=== PATIENT | male | born 1990 | race Two or more races ===

== ENCOUNTER 2022-06-20 20:45 | Inpatient (IN) | payer BC, OTHER ==
[~2022-06-20] VITALS: Ht 165.1 cm; Wt 95.1 kg
[2022-06-20] MEDS ORDERED: ONDANSETRON ODT 4 MG TAB PO ONE (22:15)
[2022-06-20] MEDS ORDERED: LIDOCAINE VISCOUS 2% 15ML UD PO ONE (22:15)
[2022-06-20] MEDS ORDERED: MAALOX PLUS or MAALOX 30 ML PO ONE (22:15)
[2022-06-20 22:26] LABS: Basophils # (auto) 0 10 ^3/uL (0-0.2); Basophils % (auto) 0.1 % (0.0-2.0); Eosinophils # (auto) 0 10 ^3/uL (0-0.8); Eosinophils % (auto) 0.1 % (0.0-7.0); Hematocrit 44.5 % (41.0-53.0); Hemoglobin 15.5 g/dL (13.5-17.5); Lymphocytes # (auto) 0.7 10 ^3/uL (0.4-5.4); Lymphocytes % (auto) 7.5 % (10.0-50.0); Mean Corpuscular Hemoglobin 29.5 pg (28.0-32.0); Mean Corpuscular Hgb Conc. 34.8 g/dL (32.0-36.0); Mean Corpuscular Volume 84.7 fL (80.0-100.0); Monocytes # (auto) 1.2 10 ^3/uL (0-1.3); Monocytes % (auto) 12.7 % (0.0-12.0); Neutrophils # (auto) 7.6 10 ^3/uL (1.6-8.6); Neutrophils % (auto) 79.6 % (37.0-80.0); Red Blood Cells 5.26 10^6/uL (4.5-5.90); Red Cell Distribution Width 13.8 % (11.8-14.3); White Blood Cell 9.5 10^3/uL (4.4-10.8)
[2022-06-20 22:39] LABS: Urine Bacteria NONE SEEN /hpf (None Seen); Urine Blood Negative /uL (Negative); Urine Mucus FEW (None Seen); Urine Specific Gravity 1.032 (1.001-1.035); Urine WBC 3 /hpf (0 - 3)
[2022-06-20 22:42] LABS: Albumin 3.8 g/dL (3.4-5.0); Calcium 9.7 mg/dL (8.5-10.1); Potassium 3.3 mmol/L (3.5-5.1)
[2022-06-20 22:45] LABS: BUN/Creatinine Ratio 10.5 (10.0-20.0); Bilirubin, Total 1.7 mg/dL (0.2-1.0); Total Protein 8.2 g/dL (6.4-8.2)
[2022-06-21 00:09] LABS: INR 1.02 (0.9-1.15)
[2022-06-21] MEDS ORDERED: MORPHINE SULFATE 4 MG/ML SYR/VIAL IV ONE (00:30)
[2022-06-21] MEDS ORDERED: ONDANSETRON HCL 4 MG/2 ML VIAL IV ONE (00:30)
[2022-06-21] MEDS ORDERED: BENZOCAINE (DENTAL) 20 % SPRAY 60ML MT ONE (01:15)
[2022-06-21] MEDS: SODIUM CHLORIDE 0.9% 1,000 ML IV SCH ×2 (01:52→14:03)
[2022-06-21] MEDS ORDERED: MORPHINE SULFATE INJ 2 MG/ml SYRG ONE (02:41)
[2022-06-21] MEDS: MORPHINE SULFATE INJ 2 MG/ml SYRG IV PRN (02:44)
[2022-06-21] MEDS ORDERED: GASTROGRAFIN 120 ML SOL ONE (06:57)
[2022-06-21] MEDS: PANTOPRAZOLE 40 MG/10 ML VIAL INJ IV SCH (10:45)
[2022-06-21 15:59] VITALS: BP 134/64
[2022-06-21 17:00] VITALS: BP 134/64
[2022-06-21 22:00] VITALS: BP 129/78
[2022-06-22] MEDS: SODIUM CHLORIDE 0.9% 1,000 ML IV SCH ×2 (03:03→15:13)
[2022-06-22 05:00] VITALS: BP 128/73
[2022-06-22 05:04] LABS: Basophils # (auto) 0 10 ^3/uL (0-0.2); Basophils % (auto) 0.2 % (0.0-2.0); Eosinophils # (auto) 0 10 ^3/uL (0-0.8); Eosinophils % (auto) 0.6 % (0.0-7.0); Hematocrit 41.1 % (41.0-53.0); Hemoglobin 14.4 g/dL (13.5-17.5); Lymphocytes # (auto) 1.4 10 ^3/uL (0.4-5.4); Lymphocytes % (auto) 22.1 % (10.0-50.0); Mean Corpuscular Hemoglobin 29.4 pg (28.0-32.0); Mean Corpuscular Volume 84.1 fL (80.0-100.0); Monocytes # (auto) 1.1 10 ^3/uL (0-1.3); Monocytes % (auto) 17.6 % (0.0-12.0); Neutrophils # (auto) 3.9 10 ^3/uL (1.6-8.6); Neutrophils % (auto) 59.5 % (37.0-80.0); Nucleated Red Blood Cells % 0.2 %; Red Blood Cells 4.88 10^6/uL (4.5-5.90); Red Cell Distribution Width 13.6 % (11.8-14.3); White Blood Cell 6.5 10^3/uL (4.4-10.8)
[2022-06-22 05:05] LABS: Albumin 3.4 g/dL (3.4-5.0); Calcium 8.5 mg/dL (8.5-10.1)
[2022-06-22 05:09] LABS: Total Protein 7.6 g/dL (6.4-8.2)
[2022-06-22 09:02] VITALS: BP 135/83
[2022-06-22] MEDS: PANTOPRAZOLE 40 MG/10 ML VIAL INJ IV SCH (10:30)
[2022-06-22] MEDS ORDERED: POTASSIUM CHL 20 Meq TABLET PO ONE (11:00)
[2022-06-22 12:54] VITALS: BP 144/86
[2022-06-22] MEDS ORDERED: ONDANSETRON HCL 4 MG/2 ML VIAL IV PRN (15:00)
[2022-06-22] MEDS ORDERED: ACETAMINOPHEN 650 MG RECT SUPP PR PRN (16:30)
[2022-06-22 17:13] VITALS: BP 159/87
[2022-06-22] MEDS: MORPHINE SULFATE INJ 2 MG/ml SYRG IV PRN (18:56)
[2022-06-22] MEDS ORDERED: cefTRIAXone 1GM/50ML D5W 50 ML IV ONE (19:15)
[2022-06-22] MEDS: D5W/SOD CHL 0.45%/KCL 20MEQ 1,000 ML IV SCH (22:23)
[2022-06-22] MEDS: metroNIDAZOLE 500MG/100ML 100 ML IV SCH (22:25)
[2022-06-23] MEDS: D5W/SOD CHL 0.45%/KCL 20MEQ 1,000 ML IV SCH ×3 (03:35→20:45)
[2022-06-23 04:50] VITALS: BP 119/70
[2022-06-23] MEDS: metroNIDAZOLE 500MG/100ML 100 ML IV SCH ×3 (05:36→20:45)
[2022-06-23 06:39] LABS: Hematocrit 38.3 % (41.0-53.0); Hemoglobin 13.5 g/dL (13.5-17.5); Mean Corpuscular Hemoglobin 29.6 pg (28.0-32.0); Mean Corpuscular Hgb Conc. 35.1 g/dL (32.0-36.0); Mean Corpuscular Volume 84.3 fL (80.0-100.0); Red Blood Cells 4.55 10^6/uL (4.5-5.90); Red Cell Distribution Width 13.4 % (11.8-14.3); White Blood Cell 8.1 10^3/uL (4.4-10.8)
[2022-06-23 06:46] LABS: Basophils % (manual) 0 (0.0-2.0); Blast Cells 0; Metamyelocytes % 0; Myelocytes % 0; Promyelocytes % 0; Reactive Lymphocytes 0
[2022-06-23 07:07] LABS: Potassium 3.4 mmol/L (3.5-5.1)
[2022-06-23 07:11] LABS: Albumin 2.8 g/dL (3.4-5.0); BUN/Creatinine Ratio 8.3 (10.0-20.0); Magnesium 2.2 mg/dL (1.6-2.6)
[2022-06-23 07:14] LABS: Bilirubin, Total 0.7 mg/dL (0.2-1.0); Total Protein 6.7 g/dL (6.4-8.2)
[2022-06-23 08:22] LABS: Band Neutrophils % (manual) 5; Eosinophils % (manual) 1 (0-7); Lymphocytes % (manual) 28 (10.0-50.0); Monocytes % (manual) 13 (0-12)
[2022-06-23 09:13] VITALS: BP 125/89
[2022-06-23] MEDS: cefTRIAXone 1GM/50ML D5W 50 ML IV SCH (09:16)
[2022-06-23] MEDS: PANTOPRAZOLE 40 MG/10 ML VIAL INJ IV SCH (11:00)
[2022-06-23 13:01] VITALS: BP 121/79
[2022-06-23 17:00] VITALS: BP 115/78
[2022-06-23 22:00] VITALS: BP 123/83
[2022-06-24] MEDS: D5W/SOD CHL 0.45%/KCL 20MEQ 1,000 ML IV SCH ×2 (04:35→09:19)
[2022-06-24 05:00] VITALS: BP 117/70
[2022-06-24] MEDS: metroNIDAZOLE 500MG/100ML 100 ML IV SCH ×2 (05:36→14:00)
[2022-06-24 08:57] VITALS: BP 132/92
[2022-06-24] MEDS: cefTRIAXone 1GM/50ML D5W 50 ML IV SCH (09:09)
[2022-06-24] MEDS: PANTOPRAZOLE 40 MG/10 ML VIAL INJ IV SCH (09:30)
[2022-06-24 12:54] VITALS: BP 112/72
== END 2022-06-24 15:20 | disposition home or self-care (01) | DRG 390 ==
LOC: ER 20:45 → OVERFLOW 06-21 01:25 → WEST WING 06-21 15:55
PROVIDERS: ADMIT Nurse Practitioner; ATTEND Internal Medicine
DX: K56.609 Unspecified intestinal obstruction, unspecified as to partial versus complete obstruction (principal); E66.9 Obesity, unspecified; E87.6 Hypokalemia; Z68.34 Body mass index [BMI] 34.0-34.9, adult; Z79.899 Other long term (current) drug therapy
CPT/HCPCS: 36415; 71045; 74018; 74176; 74250; 80053; 81001; 83690; 83735; 85007; 85025; 85027; 85610; 86850; 86900; 86901; 87040; 87086; 96361; 96374; 96375; 96376; C9113; G0378; J0696; J2405; J3490; Q0162

== ENCOUNTER 2024-03-31 09:59 | Inpatient (IN) | payer BC ==
[~2024-03-31] VITALS: Ht 167.6 cm; Wt 96.9 kg
--- NOTE | 2024-03-31 10:28 | ED.PDOC ---
GI ASSESSMENT HPI Comments 33 y.o male presents to the ED for a chief complaint of diffused abdominal pain that presented 3 days ago. Patient describes pain as sharp, constant, and has no modifying factors. Patient reports similar pain 2 years ago, was seen at this ED and was diagnosed with small bowel obstruction. Patient denies any nausea, vomiting, diarrhea, fever, chills, back pain, or urinary discomfort. Chief Complaint: Abdominal Pain Time Seen by MD: 10:17 Reviewed Notes: Nurses Notes, Medications, Allergies Allergies: Coded Allergies: NO KNOWN ALLERGIES (Unverified , 06/20/22) Home Meds Active Scripts Pantoprazole Sodium Sesquihydr (Protonix) 40 Mg Tab, 40 MG PO DAILY, #30 TAB Prov:SANAZ WYMAN MD 03/31/24 Ondansetron Odt 4MG Tab (ZOFRAN PO) 4 Mg Tb, 4 MG PO Q8HP PRN for 5 Days, #15 TAB ODT TAB-DISSOLVE IN MOUTH, THEN SWALLOW Prov:SANAZ WYMAN MD 03/31/24 Information Source: Patient Mode of Arrival: Ambulatory Timing: Days (3) Duration: Since onset Quality: Sharp Vomitus: None Stool: Normal Severity: Moderate Recent: None Recent Hx of: None Pain Location: None Modifying Factors: Nothing Associated sign and symptoms: Abdominal Pain Past Medical History PAST MEDICAL HISTORY: Denies Surgical History: Denies all surgeries Family History Family History: Reviewed,noncontributory to illness, No family hx of Cancer, No family hx of DM, No family hx of Heart nesha, No family hx of HTN, No family hx ofKidney nesha, No family hx of Liver nesha, No family hx of Lung nesha, No family hx of Stroke Social History Smoker: Non-Smoker Alcohol: Denies ETOH Use Drugs: Denies Drug Use Lives In: Home Constitutional: denies: chills, diaphoresis, fatigue, fever, malaise, sweats, weakness, others EENTM: denies: blurred vision, double vision, ear bleeding, ear discharge, ear drainage, ear pain, ear ringing, eye pain, eye redness, hearing loss, mouth pain, mouth swelling, nasal discharge, nose bleeding, nose congestion, nose pain, photophobia, tearing, throat pain, throat swelling, voice changes, others Respiratory: denies: cough, hemoptysis, orthopnea, SOB at rest, shortness of breath, SOB with excertion, stridor, wheezing, others Cardiovascular: denies: chest pain, dizzy spells, diaphoresis, Dyspnea on exert ion, edema, irregular heart beat, left arm pain, lightheadedness, palpitations, PND, syncope, others Gastrointestinal: reports: abdominal pain; denies: abdomen distended, blood streaked bowels, constipated, diarrhea, dysphagia, difficulty swallowing, hematemesis, melena, nausea, poor appetite, poor fluid intake, rectal bleeding, rectal pain, vomiting, others Genitourinary: denies: burning, dysuria, flank pain, frequency, hematuria, incontinence, penile discharge, penile sore, pain, testicle pain, testicle swelling, urgency, others Neurological: denies: dizziness, fainting, headache, left sided numbness, left sided weakness, numbness, paresthesia, pre-existing deficit, right sided numbness, right sided weakness, seizure, speech problems, tingling, tremors, weakness, others Musculoskeletal: denies: back pain, gout, joint pain, joint swelling, muscle pain, muscle stiffness, neck pain, others Integumetry: denies: bruises, change in color, change in hair/nails, dryness, laceration, lesions, lumps, rash, wounds, others Allergic/Immunocompromised: denies: Difficulty Healing, Frequent Infections, Hives, Itching, others Hematologic/Lymphatic: denies: anemia, blood clots, easy bleeding, easy bruising, swollen glands, others Endocrine: denies: excessive hunger, excessive sweating, excessive thirst, excessive urination, flushing, intolerance to cold, intolerance to heat, unexplained weight gain, unexplained weight loss, others Psychiatric: denies: anxiety, bipolar disorder, depression, hopeless, panic disorder, schizophrenia, sleepless, suicidal, others All Other Systems: Reviewed and Negative Physical Exam General Appearance: No Apparent Distress HEENT: Normal ENT Inspection, Pharynx Normal, TMs Normal Neck: Full Range of Motion, Non-Tender, Normal, Normal Inspection Respiratory: Chest Non-Tender, Lungs Clear, No Accessory Muscle Use, No Respiratory Distress, Normal Breath Sounds Cardiovascular: No Edema, No JVD, No Murmur, No Gallop, Normal Peripheral Pulses, Regular Rate/Rhythm Breast Exam: Deferred Gastrointestinal: Epigastric, No Organomegaly, No Pulsatile Mass, Normal Bowel Sounds, Soft, Tenderness Genitalia: Deferred Pelvic: Deferred Rectal: Deferred Extremities: No calf tenderness, Normal capillary refill, Normal inspection, Normal range of motion, Non-tender, No pedal edema Musculoskeletal : Apperance: Normal Neurologic: Alert, 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 Was a procedure done?: No GI differential Dx Differential Diagnosis: Bowel Obstruction, Esophagitis, Gastritis/PUD, Gastroenteritis, Inflammatory BD, UTI, Electrolyte Imbalance, Viral X-Ray, Labs, Meds, VS Vital Signs Date Time Temp Pulse Resp B/P (MAP) Pulse Ox O2 Delivery O2 Flow Rate FiO2 03/31/24 12:07 74 16 139/70 (93) 97 03/31/24 10:20 84 16 127/91 (103) 97 Lab Test 03/31/24 10:36 Range/Units White Blood Count 6.8 4.4-10.8 10^3/uL Red Blood Count 5.40 4.5-5.90 10^6/uL Hemoglobin 15.8 13.5-17.5 g/dL Hematocrit 46.3 41.0-53.0 % Mean Corpuscular Volume 85.8 80.0-100.0 fL Mean Corpuscular Hemoglobin 29.3 28.0-32.0 pg Mean Corpuscular Hemoglobin Concent 34.2 32.0-36.0 g/dL Red Cell Distribution Width 13.7 11.8-14.3 % Platelet Count 286 140-450 10^3/uL Mean Platelet Volume 8.1 6.9-10.8 fL Neutrophils (%) (Auto) 60.5 37.0-80.0 % Lymphocytes (%) (Auto) 32.2 10.0-50.0 % Monocytes (%) (Auto) 6.6 0.0-12.0 % Eosinophils (%) (Auto) 0.3 0.0-7.0 % Basophils (%) (Auto) 0.4 0.0-2.0 % Neutrophils # (Auto) 4.1 1.6-8.6 10 ^3/uL Lymphocytes # (Auto) 2.2 0.4-5.4 10 ^3/uL Monocytes # (Auto) 0.5 0-1.3 10 ^3/uL Eosinophils # (Auto) 0 0-0.8 10 ^3/uL Basophils # (Auto) 0 0-0.2 10 ^3/uL Nucleated Red Blood Cells 0.0 % Sodium Level 139 136-145 mmol/L Potassium Level 3.7 3.5-5.1 mmol/L Chloride Level 107 98-107 mmol/L Carbon Dioxide Level 27 20-31 mmol/L Anion Gap Pending Blood Urea Nitrogen 10 9-23 mg/dL Creatinine 0.71 0.700-1.30 mg/dL Glomerular Filtration Rate Calc 123 >90 mL/min BUN/Creatinine Ratio 14.1 10.0-20.0 Serum Glucose 96 74-106 mg/dL Calcium Level 9.5 8.7-10.4 mg/dL Total Bilirubin 0.7 0.2-1.0 mg/dL Aspartate Amino Transferase (AST) 23 13-40 U/L Alanine Aminotransferase (ALT) 41 H 7-40 U/L Alkaline Phosphatase 76 46-116 U/L Total Protein 7.4 5.7-8.2 g/dL Albumin 4.5 3.2-4.8 g/dL Lipase 32 12-53 U/L Exam: CT CT AB PEL WO CON-NO ORAL OR IV IMPRESSION: 1. No acute abdominal or pelvic findings. 2. Hepatic steatosis. The patient's CBC and chemistry panel is within normal limits The lipase is within normal limits At this time, the patient was being discharged with a diagnosis of abdominal pain unknown etiology The patient was still having a significant amount of pain The patient was being admitted to the hospitalist The patient was still having intractable abdominal pain Images Reviewed?: Images reviewed and evaluated by me Time of 1ST Reevaluation: 10:24 Reevaluation 1ST: Unchanged Patient Education/Counseling: Diagnosis, Treatment, Prognosis, Need For Follow Up Family Education/Counseling: Diagnosis, Treatment, Prognosis, Need For Follow Up Departure 1 Departure Time of Disposition: 12:00 Impression: Primary Impression: Intractable abdominal pain Disposition: ADMITTED INPATIENT Admit to: Med Surg Condition: Fair e-Prescriptions Pantoprazole Sodium Sesquihydr (Protonix) 40 Mg Tab 40 MG PO DAILY, #30 TAB Prov: SANAZ WYMAN MD 03/31/24 Ondansetron Odt 4MG Tab (ZOFRAN PO) 4 Mg Tb 4 MG PO Q8HP PRN for 5 Days, #15 TAB ODT TAB-DISSOLVE IN MOUTH, THEN SWALLOW Prov: SANAZ WYMAN MD 03/31/24 Critical Care Note Critical Care Time?: No Stability Stability form required: No I personally scribed for SANAZ WYMAN MD ([email or web address]) on 03/31/24 at 10:28. Electronically submitted by Jigna Wilkerson ([email or web address]). I personally scribed for SANAZ WYMAN MD ([email or web address]) on 03/31/24 at 11:10. Electronically submitted by Jigna Wilkerson ([facility]). SANAZ WYMAN MD Mar 31, 2024 10:28
[2024-03-31 11:05] LABS: Basophils # (auto) 0 10 ^3/uL (0-0.2); Basophils % (auto) 0.4 % (0.0-2.0); Eosinophils # (auto) 0 10 ^3/uL (0-0.8); Eosinophils % (auto) 0.3 % (0.0-7.0); Hematocrit 46.3 % (41.0-53.0); Hemoglobin 15.8 g/dL (13.5-17.5); Lymphocytes # (auto) 2.2 10 ^3/uL (0.4-5.4); Lymphocytes % (auto) 32.2 % (10.0-50.0); Mean Corpuscular Hemoglobin 29.3 pg (28.0-32.0); Mean Corpuscular Hgb Conc. 34.2 g/dL (32.0-36.0); Mean Corpuscular Volume 85.8 fL (80.0-100.0); Monocytes # (auto) 0.5 10 ^3/uL (0-1.3); Monocytes % (auto) 6.6 % (0.0-12.0); Neutrophils # (auto) 4.1 10 ^3/uL (1.6-8.6); Neutrophils % (auto) 60.5 % (37.0-80.0); Platelet Count (auto) 286 10^3/uL (140-450); Red Cell Distribution Width 13.7 % (11.8-14.3); White Blood Cell 6.8 10^3/uL (4.4-10.8)
--- NOTE | 2024-03-31 11:06 | DVH ---
Exam: CT CT AB PEL WO CON-NO ORAL OR IV History: pain Comparison Study: CT scan of the abdomen pelvis dated 06/20/2022. Technique: Multidetector spiral CT of the abdomen and pelvis was performed from lung bases to pubic s ymphysis. Imaging was performed without intravenous contrast. Coronal and sagittal multiplanar refor mats were obtained from the axial data set by the technologist. Radiation Dose : 1. Abdomen/Pelvis: CTDIvol 14.3 mGy, DLP 927.3 mGy*cm. Findings: Evaluation of vasculature and solid organs is limited due to lack of intravenous contrast use. Lung Bases: Lung bases are clear. Visualized portions of the heart and pericardium are unremarkable. Liver: The liver is normal in size. No focal lesions. Diffusely hypoattenuating liver parenchyma con sistent with hepatic steatosis. Gallbladder and Biliary Tree: The gallbladder is unremarkable. No intrahepatic or extrahepatic bilia ry ductal dilatation. Spleen: Unremarkable Pancreas: The pancreas is grossly unremarkable. Adrenal Glands: Unremarkable Kidneys: Kidneys are unremarkable without calculi or hydronephrosis. GI tract: The stomach is grossly normal in appearance. There is a 1.4 cm lucency in the 2nd portion o f the duodenum most likely reflecting a duodenal diverticulum. No evidence of small bowel wall thicke garrett or abnormal dilatation to suggest bowel obstruction. The colon is unremarkable. The appendix is not visualized, however no inflammatory changes in the right lower quadrant to suggest acute appendi citis. Peritoneum/mesentery/retroperitoneum. No evidence of free intraperitoneal air. No ascites. No evidenc e of suspicious lymphadenopathy. Abdominal Wall: Unremarkable. Vasculature: The visualized abdominal aorta is normal in size and caliber. Evaluation of abdominal a nd pelvic vessels is limited due to lack of intravenous contrast. Urinary Bladder: Grossly unremarkable for degree of distention. Pelvic Organs: Unremarkable Musculoskeletal: No aggressive focal bony lesions, acute fractures or dislocation. IMPRESSION: 1. No acute abdominal or pelvic findings. 2. Hepatic steatosis.
[2024-03-31 11:45] LABS: Alanine Aminotransferase 41 U/L (7-40); Albumin 4.5 g/dL (3.2-4.8); Alkaline Phosphatase 76 U/L (46-116); Aspartate Aminotransferase 23 U/L (13-40); BUN/Creatinine Ratio 14.1 (10.0-20.0); Bilirubin, Total 0.7 mg/dL (0.2-1.0); Blood Urea Nitrogen 10 mg/dL (9-23); Calcium 9.5 mg/dL (8.7-10.4); Chloride 107 mmol/L (98-107); Glucose 96 mg/dL (74-106); Lipase 32 U/L (12-53); Potassium 3.7 mmol/L (3.5-5.1); Sodium 139 mmol/L (136-145); Total Protein 7.4 g/dL (5.7-8.2)
[2024-03-31] MEDS ORDERED: PANT40TA2 PO (12:01)
[2024-03-31] MEDS ORDERED: ZOFR4T PO (12:01)
[2024-03-31 13:12] VITALS: PULSE 74; RESP 16; O2SAT 96
[2024-03-31 13:23] LABS: Urine Bacteria None Seen /hpf (None Seen)
[2024-03-31] MEDS: ONDANSETRON HCL 4 MG/2 ML VIAL IV ONE (13:28)
[2024-03-31] MEDS: SODIUM CHLORIDE 0.9% 500 ML IVB ONE (13:28)
[2024-03-31] MEDS: PANTOPRAZOLE 40 MG/10 ML VIAL INJ IV ONE (13:29)
[2024-03-31] MEDS: MORPHINE SULFATE 4 MG/ML SYR/VIAL IV ONE (13:29)
[2024-03-31 13:38] LABS: Urine Blood Negative /uL (Negative); Urine Clarity Clear (Clear); Urine Color Light-Yellow (Yellow); Urine Mucus FEW (None Seen); Urine Protein, UAD Negative (Negative); Urine Specific Gravity 1.025 (1.001-1.035); Urine Squamous Epithelial Cell None Seen /hpf (<5); Urine Urobilinogen Normal (Negative); Urine WBC 1 /HPF (0-3)
[2024-03-31 14:16] LABS: Anion Gap 5 (5-15); Carbon Dioxide 27 mmol/L (20-31)
--- NOTE | 2024-03-31 15:51 | DVHHP2 ---
History of Present Illness Reason for Visit: Intractable abdominal pain History of Present Illness The patient is a 33-year-old male who denies past medical history presented to [facility] ED with complaint of diffuse abdominal pain for the past 3 days. Patient reports symptoms progressively get worse with generalized abdominal pain, sharp in nature, constant, rating 7/10 numeric scale, getting worse that prompted this visit. Patient was seen and evaluated in the ED, laboratory data shows WBC 6.8, platelets 286, sodium 139, potassium 3.7, BUN 10, creatinine 0.71, GFR 123, glucose 96, AST 23, ALT 41, blood pressure 142/97, heart rate 74, temperature 97.8 F, O2 saturation 96% on room air. Abd omen/pelvis CT showed no acute abdominal or pelvic findings. Please see medication orders section in the computer. On my assessment, patient denied chest pain, no headache, no dizziness, no shortness of breath, no abdominal pain at this moment, no nausea, no vomiting, no fever, no chills. No other modifying factor or other associated signs and symptoms noted. The patient was admitted to the hospital for further evaluation and medical management. Past Medical History Denies past medical history Past Surgical History Denies all surgeries Family History Reviewed, noncontributory to the management of this case. Past Social History The patient lives at home, denies smoking, alcohol or illicit drugs abuse. Review of Systems Constitutional: No: Fever, Chills, Sweats, Weakness, Malaise, Other Eyes: No: Pain, Vision change, Conjunctivae inflammation, Eyelid inflammation, Other, Redness ENT: No: Ear pain, Ear discharge, Nose pain, Nose discharge, Nose congestion, Mouth pain, Mouth swelling, Throat pain, Throat swelling, Other Respiratory: No: Cough, Dry, Shortness of breath, SOB with excertion, Wheezing, Hemoptysis, Pleuritic Pain, Sputum, Wheezing, Other Cardiovascular: No: Chest Pain, Palpitations, Orthopnea, Paroxysmal Noc. Dyspnea, Edema, Lt Headedness, Other Gastrointestinal: Abdominal Pain; No: Nausea, Vomiting, Diarrhea, Constipation, Melena, Hematochezia, Other Genitourinary: No Dysuria, No Frequency, No Incontinence, No Hematuria, No Retention, No Other Musculoskeletal: No: other, neck pain, shoulder pain, arm pain, back pain, hand pain, leg pain, foot pain Skin: No: Rash, Lesions, Jaundice, Bruising, Other Neurological: No: Weakness, Numbness, Incoordination, Change in speech, Confusion, Seizures, Other Allergies: Coded Allergies: NO KNOWN ALLERGIES (Unverified , 06/20/22) Exam Vital Signs Vital Signs Date Time Temp Pulse Resp B/P (MAP) Pulse Ox O2 Delivery O2 Flow Rate FiO2 03/31/24 13:29 74 16 142/97 03/31/24 13:12 97.8 96 97.8 03/31/24 13:12 Room Air* 0 21 General Appearance: Alert, Oriented X3, Cooperative, No acute distress HEENT: Atraumatic, PERRLA, EOMI, Mucous membr. moist/pink Respiratory: Clear to auscultation, Normal air movement Cardiovascular: Regular rate, Normal S1, Normal S2, No murmurs Abdominal: Normal bowel sounds, Soft, No hepatospenomegaly, No masses, Other (Reports tenderness) Extremities: No clubbing, No cyanosis, No edema, Normal pulses, No tenderness/swelling Skin: No rashes, No breakdown, No significant lesion Neuro: Normal gait, Normal speech, Strength at 5/5 X4 ext, Normal tone, Sensation intact, Cranial nerves 3-12 NL, Reflexes 2+ Psych/Mental Status: Mental status NL, Mood NL Labs/Xrays Labs Test 03/31/24 12:12 03/31/24 10:36 Range/Units Urine Color Light-yellow Yellow Urine Clarity Clear Clear Urine pH 7.0 5.0-9.0 Urine Specific [place] 1.025 1.001-1.035 Urine Protein Negative Negative Urine Ketones Negative Negative Urine Blood Negative Negative /uL Urine Nitrite Negative Negative Urine Bilirubin Negative Negative Urine Urobilinogen Normal Negative mg/dL Urine Leukocyte Esterase Negative Negative /uL Urine RBC None seen 0 - 3 /hpf Urine Microscopic WBC 1 0-3 /HPF Urine Squamous Epithelial Cells None seen <5 /hpf Urine Bacteria None seen None Seen /hpf Urine Mucus Few None Seen Urine Glucose Normal Normal mg/dL White Blood Count 6.8 4.4-10.8 10^3/uL Red Blood Count 5.40 4.5-5.90 10^6/uL Hemoglobin 15.8 13.5-17.5 g/dL Hematocrit 46.3 41.0-53.0 % Mean Corpuscular Volume 85.8 80.0-100.0 fL Mean Corpuscular Hemoglobin 29.3 28.0-32.0 pg Mean Corpuscular Hemoglobin Concent 34.2 32.0-36.0 g/dL Red Cell Distribution Width 13.7 11.8-14.3 % Platelet Count 286 140-450 10^3/uL Mean Platelet Volume 8.1 6.9-10.8 fL Neutrophils (%) (Auto) 60.5 37.0-80.0 % Lymphocytes (%) (Auto) 32.2 10.0-50.0 % Monocytes (%) (Auto) 6.6 0.0-12.0 % Eosinophils (%) (Auto) 0.3 0.0-7.0 % Basophils (%) (Auto) 0.4 0.0-2.0 % Neutrophils # (Auto) 4.1 1.6-8.6 10 ^3/uL Lymphocytes # (Auto) 2.2 0.4-5.4 10 ^3/uL Monocytes # (Auto) 0.5 0-1.3 10 ^3/uL Eosinophils # (Auto) 0 0-0.8 10 ^3/uL Basophils # (Auto) 0 0-0.2 10 ^3/uL Nucleated Red Blood Cells 0.0 % Sodium Level 139 136-145 mmol/L Potassium Level 3.7 3.5-5.1 mmol/L Chloride Level 107 98-107 mmol/L Carbon Dioxide Level 27 20-31 mmol/L Anion Gap 5 5-15 Blood Urea Nitrogen 10 9-23 mg/dL Creatinine 0.71 0.700-1.30 mg/dL Glomerular Filtration Rate Calc 123 >90 mL/min BUN/Creatinine Ratio 14.1 10.0-20.0 Serum Glucose 96 74-106 mg/dL Calcium Level 9.5 8.7-10.4 mg/dL Total Bilirubin 0.7 0.2-1.0 mg/dL Aspartate Amino Transferase (AST) 23 13-40 U/L Alanine Aminotransferase (ALT) 41 H 7-40 U/L Alkaline Phosphatase 76 46-116 U/L Total Protein 7.4 5.7-8.2 g/dL Albumin 4.5 3.2-4.8 g/dL Lipase 32 12-53 U/L PATIENT: SOMMERBALDOMERO ACCT: [id number] UNIT: [id number] : 1990 LOC: ER ROOM / BED: / AGE / SEX: 33 / M ADM STATUS: REG ER SERVICE 1020 ORDERING PHYSICIAN: SANAZ WYMAN MD PROCEDURE(s): ABPL - CT AB PEL WO CON-NO ORAL OR IV REASON: pain ORDER NUMBER(s): [id number], ACCESSION NUMBER(s): [id number] Exam: CT CT AB PEL WO CON-NO ORAL OR IV History: pain Comparison Study: CT scan of the abdomen pelvis dated 06/20/2022. Technique: Multidetector spiral CT of the abdomen and pelvis was performed from lung bases to pubic symphysis. Imaging was performed without intravenous contrast. Coronal and sagittal multiplanar reformats were obtained from the axial data set by the technologist. Radiation Dose: 1. Abdomen/Pelvis: CTDIvol 14.3 mGy, DLP 927.3 mGy*cm. Findings: Evaluation of vasculature and solid organs is limited due to lack of intravenous contrast use. Lung Bases: Lung bases are clear. Visualized portions of the heart and pericardium are unremarkable. Liver: The liver is normal in size. No focal lesions. Diffusely hypoattenuating liver parenchyma consistent with hepatic steatosis. Gallbladder and Biliary Tree: The gallbladder is unremarkable. No intrahepatic or extrahepatic biliary ductal dilatation. Spleen: Unremarkable Pancreas: The pancreas is grossly unremarkable. Adrenal Glands: Unremarkable Kidneys: Kidneys are unremarkable without calculi or hydronephrosis. GI tract: The stomach is grossly normal in appearance. There is a 1.4 cm lucency in the 2nd portion of the duodenum most likely reflecting a duodenal diverticulum. No evidence of small bowel wall thickening or abnormal dilatation to suggest bowel obstruction. The colon is unremarkable. The appendix is not visualized, however no inflammatory changes in the right lower quadrant to suggest acute appendicitis. Peritoneum/mesentery/retroperitoneum. No evidence of free intraperitoneal air. No ascites. No evidence of suspicious lymphadenopathy. Abdominal Wall: Unremarkable. Vasculature: The visualized abdominal aorta is normal in size and caliber. Evaluation of abdominal and pelvic vessels is limited due to lack of intravenous contrast. Urinary Bladder: Grossly unremarkable for degree of distention. Pelvic Organs: Unremarkable Musculoskeletal: No aggressive focal bony lesions, acute fractures or dislocation. IMPRESSION: 1. No acute abdominal or pelvic findings. 2. Hepatic steatosis. Assessment/Plan Assessment/Plan Acute abdominal pain Intractable abdominal pain Plan 1. Admit to med surge renal 2. Breathing treatment 3. Pain control management 4. Management of fluids and electrolytes 5. Consultation for hospitalist 6. Diagnostic tests abdomen/pelvis CT 7. DVT prophylaxis on SCDs 8. Repeat labs CBC, CMP in a.m. 9. Continue with current medical management 10. Treatment plan discussed with patient and RN. Patient verbalized understanding. Plan discussed with: Patient, Other (RN) Problem List: (1) Acute abdominal pain (2) Intractable abdominal pain Date of Service: Mar 31, 2024 Billing Provider: AZEEM JOHNSON DNP Common Visit Codes: [id number] INP/OBS CARE (HIGH) AZEEM JOHNSON DNP Mar 31, 2024 15:51
[2024-03-31] MEDS ORDERED: ACETAMINOPHEN 325 MG TAB PO PRN (16:00)
[2024-03-31] MEDS ORDERED: NITROGLYCERIN 0.4 MG SL TAB SL PRN (16:00)
[2024-03-31] MEDS ORDERED: ONDANSETRON HCL 4 MG/2 ML VIAL IV PRN (16:00)
[2024-03-31] MEDS ORDERED: DOCUSATE SOD 100 MG CAP PO PRN (16:00)
[2024-03-31] MEDS ORDERED: HYDROcodone-ACET 5/325MG TAB PO PRN (16:00)
[2024-03-31] MEDS ORDERED: MORPHINE SULFATE INJ 2 MG/ml SYRG IV PRN ×2 (16:00)
[2024-03-31] MEDS: SODIUM CHLORIDE 0.9% 1,000 ML IV SCH (19:21)
[2024-03-31 21:20] VITALS: BP 129/78; PULSE 73; RESP 18; TEMP 98.7; O2SAT 98
[2024-03-31 21:54] VITALS: BP 129/78; PULSE 73; RESP 18; TEMP 98.7; O2SAT 98
[2024-04-01 02:13] VITALS: BP 106/61; PULSE 72; RESP 20; TEMP 98.3
[2024-04-01 03:53] LABS: Basophils # (auto) 0 10 ^3/uL (0-0.2); Basophils % (auto) 0.3 % (0.0-2.0); Eosinophils # (auto) 0 10 ^3/uL (0-0.8); Eosinophils % (auto) 0.2 % (0.0-7.0); Hematocrit 42.3 % (41.0-53.0); Hemoglobin 14.8 g/dL (13.5-17.5); Lymphocytes # (auto) 2.6 10 ^3/uL (0.4-5.4); Lymphocytes % (auto) 26.4 % (10.0-50.0); Mean Corpuscular Hemoglobin 29.6 pg (28.0-32.0); Mean Corpuscular Volume 84.6 fL (80.0-100.0); Monocytes # (auto) 0.8 10 ^3/uL (0-1.3); Monocytes % (auto) 8.6 % (0.0-12.0); Neutrophils # (auto) 6.3 10 ^3/uL (1.6-8.6); Neutrophils % (auto) 64.5 % (37.0-80.0); Platelet Count (auto) 266 10^3/uL (140-450); Red Blood Cells 4.99 10^6/uL (4.5-5.90); Red Cell Distribution Width 13.6 % (11.8-14.3); White Blood Cell 9.8 10^3/uL (4.4-10.8)
[2024-04-01 04:07] LABS: Alanine Aminotransferase 37 U/L (7-40); Alkaline Phosphatase 70 U/L (46-116); Calcium 9.4 mg/dL (8.7-10.4)
[2024-04-01 04:08] LABS: Albumin 4.2 g/dL (3.2-4.8); Anion Gap 8 (5-15); Aspartate Aminotransferase 20 U/L (13-40); Carbon Dioxide 26 mmol/L (20-31); Chloride 104 mmol/L (98-107); Glucose 93 mg/dL (74-106); Potassium 3.7 mmol/L (3.5-5.1); Sodium 138 mmol/L (136-145); Total Protein 6.9 g/dL (5.7-8.2)
[2024-04-01 04:09] LABS: Bilirubin, Total 1.2 mg/dL (0.2-1.0); Blood Urea Nitrogen 9 mg/dL (9-23)
[2024-04-01 06:00] VITALS: BP 121/78; PULSE 71; RESP 20; TEMP 97.9; O2SAT 96
[2024-04-01 08:25] VITALS: BP 124/76; PULSE 71; RESP 18; TEMP 98.8; O2SAT 96
[2024-04-01] MEDS: PANTOPRAZOLE 40 MG/10 ML VIAL INJ IV SCH (09:50)
[2024-04-01 12:30] VITALS: BP 137/79; PULSE 65; RESP 18; TEMP 98.2; O2SAT 97
--- NOTE | 2024-04-01 13:04 | DVHPN2 ---
Reviewed: Care Plan, H&P, Labs, Medications, Previous Orders, Radiology Changes from previous H/P or p: No Changes Eyes: No Pain, No Vision change, No Conjunctivae inflammation, No Eyelid inflammation, No Other, No Redness ENT: No Ear pain, No Ear discharge, No Nose pain, No Nose discharge, No Nose congestion, No Mouth pain, No Mouth swelling, No Throat pain, No Throat swelling, No Other Cardiovascular: No Chest Pain, No Palpitations, No Orthopnea, No Paroxysmal Noc. Dyspnea, No Edema, No Lt Headedness, No Other Respiratory: No Cough, No Dry, No Shortness of breath, No SOB with excertion, No Wheezing, No Hemoptysis, No Pleuritic Pain, No Sputum, No Other Gastrointestinal: No Nausea, No Vomiting; Abdominal Pain; No Diarrhea, No Constipation, No Melena, No Hematochezia, No Other Genitourinary: No Dysuria, No Frequency, No Incontinence, No Hematuria, No Retention, No Other Musculoskeletal: No other, No neck pain, No shoulder pain, No arm pain, No back pain, No hand pain, No leg pain, No foot pain Skin: No Rash, No Lesions, No Jaundice, No Bruising, No Other Objective Vitals Vital Signs Date Time Temp Pulse Resp B/P (MAP) Pulse Ox O2 Delivery O2 Flow Rate FiO2 04/01/24 08:25 98.8 71 18 124/76 (92) 96 98.8 03/31/24 21:54 Room Air* 0 21 Medications Current Medications Medications Dose Ordered Sig/Juvenal Route Start Time Stop Time Status Last Admin Dose Admin Pantoprazole Sodium 40 mg DAILY IV 04/01/24 10:00 04/01/24 09:50 40 MG Sodium Chloride 1,000 ml @ 60 mls/hr [id number] IV 03/31/24 16:00 04/01/24 08:40 60 MLS/HR Acetaminophen/ Hydrocodone Bitart 1 tab Q4HP PRN PO 03/31/24 16:00 Ondansetron HCl 4 mg Q4HP PRN IV 03/31/24 16:00 Docusate Sodium 100 mg BIDPRN PRN PO 03/31/24 16:00 Acetaminophen 650 mg Q6HP PRN PO 03/31/24 16:00 Morphine Sulfate 2 mg Q4HPRN PRN IV 03/31/24 16:00 Nitroglycerin 0.4 mg Q5MINP PRN SL 03/31/24 16:00 Morphine Sulfate 2 mg Q30M PRN IV 03/31/24 16:00 Laboratory Results Laboratory Tests 04/01/24 03:34 Chemistry Test 04/01/24 03:34 Albumin 4.2 g/dL (3.2-4.8) Calcium Level 9.4 mg/dL (8.7-10.4) Total Protein 6.9 g/dL (5.7-8.2) LFT Test 04/01/24 03:34 Alanine Aminotransferase (ALT) 37 U/L (7-40) Alkaline Phosphatase 70 U/L (46-116) Aspartate Amino Transferase (AST) 20 U/L (13-40) Total Bilirubin 1.2 mg/dL (0.2-1.0) H Urinalysis Test 03/31/24 12:12 Urine Color Light-yellow (Yellow) Urine Clarity Clear (Clear) Urine pH 7.0 (5.0-9.0) Urine Specific [place] 1.025 (1.001-1.035) Urine Protein Negative (Negative) Urine Ketones Negative (Negative) Urine Blood Negative /uL (Negative) Urine Nitrite Negative (Negative) Urine Bilirubin Negative (Negative) Urine Urobilinogen Normal mg/dL (Negative) Urine Leukocyte Esterase Negative /uL (Negative) Urine RBC None seen /hpf (0 - 3) Urine Microscopic WBC 1 /HPF (0-3) Urine Squamous Epithelial Cells None seen /hpf (<5) Urine Bacteria None seen /hpf (None Seen) Urine Mucus Few (None Seen) Urine Glucose Normal mg/dL (Normal) Labs and/or images reviewed: Labs reviewed by me, Image(s) reviewed by me Assessment/Plan Assessment/Plan Intractable abdominal pain: CBC with normal limits, CMP with normal limits, lipase negative CT abdomen pelvis without contrast negative pantoprazole GI consult for Dr. Sung Oneill Acute dehydration Check Urine drug screen and blood alcohol level Plan discussed with: Patient My Orders Orders - DONNA BUTTERFIELD MD Procedure Category Date Status Time Drug Screen LAB 04/01/24 Transmitted 12:59 Blood Alcohol LAB 04/01/24 Transmitted 12:59 Date of Service: Apr 01, 2024 Billing Provider: DONNA BUTTERFIELD MD Common Visit Codes: [id number] INP/OBS CARE(HIGH) DONNA BUTTERFIELD MD Apr 01, 2024 13:04
[2024-04-01 15:33] VITALS: BP 125/84; PULSE 70; RESP 15; TEMP 98; O2SAT 97
--- NOTE | 2024-04-01 17:00 | DVHCONRES ---
Date Seen: Apr 01, 2024 Resident Creating Document: GILBERTO GORE History of Present Illness This is a 33-year-old male patient with a past medical history of GERD like symptoms who presents to the ER with a chief complaint of epigastric abdominal pain which is burning like in nature. Associated symptoms include burping and bloating. Reports that this has been going on for the past 2 years. Patient underwent EGD less than 1 year ago he is unsure of the results. Patient seen and examined at the bedside. Plan for EGD tomorrow. NPO starting midnight. Family History: FH: bladder cancer G8 MOTHER Hypertension G8 FATHER Allergies: Coded Allergies: NO KNOWN ALLERGIES (Unverified , 06/20/22) Home Meds Active Scripts Pantoprazole Sodium Sesquihydr (Protonix) 40 Mg Tab, 40 MG PO DAILY, #30 TAB Prov:SANAZ WYMAN MD 03/31/24 Ondansetron Odt 4MG Tab (ZOFRAN PO) 4 Mg Tb, 4 MG PO Q8HP PRN for 5 Days, #15 TAB ODT TAB-DISSOLVE IN MOUTH, THEN SWALLOW Prov:SANAZ WYMAN MD 03/31/24 Current Medications Current Medications Medications (Trade) Dose Ordered Sig/Juvenal Route PRN Reason Start Time Stop Time Status Last Admin Pantoprazole Sodium (Protonix) 40 mg DAILY IV 04/01/24 10:00 04/01/24 09:50 Sucralfate (Carafate Susp) 1 gm QID@0600,1130,1700,2200 PO 04/01/24 17:00 Vital Signs Vital Signs Date Time Temp Pulse Resp B/P (MAP) Pulse Ox O2 Delivery O2 Flow Rate FiO2 04/01/24 15:33 98.0 70 15 125/84 (98) 97 98.0 03/31/24 21:54 Room Air* 0 21 Physical Exam Patient lying in bed, in no acute distress General: Over weight, afebrile, palor, mucosae are moist Cardiovascular: Regular S1 and S2. No murmurs, gallops or rubs. No JVD elevation. No pedal edema Respiratory: Normal B/L air entry on room air. Clear lung sounds on auscultation Abdomen: Soft, nontender, nondistended, normoactive bowel sounds, no rebound tenderness, no organomegaly, no masses Genitourinary: Deferred MSK/skin: Mobilizes 4 limbs. Skin is dry and warm Neurological: No motor, no sensitive deficits, normal speech. Pupils are isocoric and reactive. Psych/Mental Status: A/Ox3 Labs/Diagnostic Data Labs Test 04/01/24 03:34 03/31/24 12:12 03/31/24 10:36 Range/Units White Blood Count 9.8 # 4.4-10.8 10^3/uL Red Blood Count 4.99 4.5-5.90 10^6/uL Hemoglobin 14.8 13.5-17.5 g/dL Hematocrit 42.3 41.0-53.0 % Mean Corpuscular Volume 84.6 80.0-100.0 fL Mean Corpuscular Hemoglobin 29.6 28.0-32.0 pg Mean Corpuscular Hemoglobin Concent 35.0 32.0-36.0 g/dL Red Cell Distribution Width 13.6 11.8-14.3 % Platelet Count 266 140-450 10^3/uL Mean Platelet Volume 7.7 6.9-10.8 fL Neutrophils (%) (Auto) 64.5 37.0-80.0 % Lymphocytes (%) (Auto) 26.4 10.0-50.0 % Monocytes (%) (Auto) 8.6 0.0-12.0 % Eosinophils (%) (Auto) 0.2 0.0-7.0 % Basophils (%) (Auto) 0.3 0.0-2.0 % Neutrophils # (Auto) 6.3 1.6-8.6 10 ^3/uL Lymphocytes # (Auto) 2.6 0.4-5.4 10 ^3/uL Monocytes # (Auto) 0.8 0-1.3 10 ^3/uL Eosinophils # (Auto) 0 0-0.8 10 ^3/uL Basophils # (Auto) 0 0-0.2 10 ^3/uL Nucleated Red Blood Cells 0.0 % Sodium Level 138 136-145 mmol/L Potassium Level 3.7 3.5-5.1 mmol/L Chloride Level 104 98-107 mmol/L Carbon Dioxide Level 26 20-31 mmol/L Anion Gap 8 5-15 Blood Urea Nitrogen 9 9-23 mg/dL Creatinine 0.75 0.700-1.30 mg/dL Glomerular Filtration Rate Calc 121 >90 mL/min BUN/Creatinine Ratio 12.0 10.0-20.0 Serum Glucose 93 74-106 mg/dL Calcium Level 9.4 8.7-10.4 mg/dL Total Bilirubin 1.2 H 0.2-1.0 mg/dL Aspartate Amino Transferase (AST) 20 13-40 U/L Alanine Aminotransferase (ALT) 37 7-40 U/L Alkaline Phosphatase 70 46-116 U/L Total Protein 6.9 5.7-8.2 g/dL Albumin 4.2 3.2-4.8 g/dL Plasma/Serum Blood Alcohol < 3.0 <10 mg/dL Urine Color Light-yellow Yellow Urine Clarity Clear Clear Urine pH 7.0 5.0-9.0 Urine Specific [place] 1.025 1.001-1.035 Urine Protein Negative Negative Urine Ketones Negative Negative Urine Blood Negative Negative /uL Urine Nitrite Negative Negative Urine Bilirubin Negative Negative Urine Urobilinogen Normal Negative mg/dL Urine Leukocyte Esterase Negative Negative /uL Urine RBC None seen 0 - 3 /hpf Urine Microscopic WBC 1 0-3 /HPF Urine Squamous Epithelial Cells None seen <5 /hpf Urine Bacteria None seen None Seen /hpf Urine Mucus Few None Seen Urine Glucose Normal Normal mg/dL Lipase 32 12-53 U/L Assessment Abdominal pain secondary to ? Peptic ulcer disease vs chronic GERD Hyperbilirubinemia Transaminitis secondary to hepatic steatosis Plan: Given the chronic symptoms of GERD, patient would likely benefit from upper EGD. Scheduled for upper EGD /. NPO starting midnight. Follow up with the LFTs. Continue Carafate q.i.d. and pantoprazole once daily Plan discussed with patient in which all questions have been answered Case discussed Dr. Oneill Plan discussed with: Patient GILBERTO GORE RESIDENT Apr 01, 2024 17:00
[2024-04-01] MEDS: SUCRALFATE 1 GM/10 ML ORAL SUSP PO SCH (17:14)
[2024-04-01 21:00] VITALS: BP 118/90; PULSE 71; RESP 19; TEMP 97.6; O2SAT 98
[2024-04-02] VITALS (9 sets, daily range): BP systolic 113–129; BP diastolic 73–88; PULSE 61–81; RESP 16–20; TEMP 97.6–98.8; O2SAT 95–98
--- NOTE | 2024-04-02 05:17 | DVH ---
CHEST RADIOGRAPH Indication: epigastric pain; elevated lfts Technique: Single frontal view of the chest was obtained Comparison: None FINDINGS: Lines and Tubes: Endotracheal tube, enteric catheter and right PICC in satisfactory position. Lungs: Ingestion Pleura: No effusion. No pneumothorax. Cardiomediastinal contours: Cardiomegaly. Bones: No acute osseous abnormality. IMPRESSION: Lines and tubes in satisfactory position. Cardiomegaly. Mild diffuse congestion.
[2024-04-02 06:51] LABS: Total Protein 7.8 g/dL (5.7-8.2)
[2024-04-02 07:02] LABS: Albumin 4.9 g/dL (3.2-4.8); Bilirubin, Direct 0.4 mg/dL (<0.3); Bilirubin, Total 1.4 mg/dL (0.2-1.0)
[2024-04-02 07:09] LABS: INR 1.03 (0.9-1.15); Partial Thromboplastin Time 27.7 SEC (24.5-34.5); Prothrombin Time 10.9 sec (9.3-11.8)
--- NOTE | 2024-04-02 08:08 | DVH ---
EXAM: US GALLBLADDER INDICATION: EPIGASTRIC PAIN, ELEVATED LFTS TECHNIQUE: Multiple real-time sonographic images were obtained of the right upper quadrant. COMPARISON: US GALLBLADDER on DOS: 04/02/24 FINDINGS: The liver demonstrates increased echotexture without focal mass lesions. The liver measure s 17.3 cm. There is hepatopedal color doppler flow in the main portal vein. There is no intrahepatic biliary ductal dilatation. The gallbladder is without evidence of stone or sludge. The gallbladder wall measures 0.2 cm. The common bile duct measures 0.2 cm. Mild pericholecystic free fluid. There is a negative sonographic Church's sign. The right kidney measures 10.3 cm. The right kidney is normal in contour, size, and shape. The ech ogenicity is normal. There is no hydronephrosis. The pancreas is not well visualized due to overlying bowel gas. Visualized portions of the aorta and inferior vena cava are unremarkable. No evidence of ascites. IMPRESSION: 1. Hepatic steatosis. 2. No gallstones or positive sonographic church's sign. Questionable mild pericholecystic free fluid .
[2024-04-02] MEDS ORDERED: SODIUM CHLORIDE LOCK 10 ML ONE (09:45)
[2024-04-02] MEDS ORDERED: LIDOCAINE VISCOUS 2% 15ML UD ONE (09:45)
[2024-04-02] MEDS ORDERED: diphenhdrAMINE HCL 50 MG/1 ML VL ONE (09:46)
[2024-04-02] MEDS ORDERED: MIDAZOLAM HCL 5 MG/ML-1ML VIAL ONE (09:46)
[2024-04-02] MEDS ORDERED: fentaNYL CITRATE 100 MCG/2 ML VL ONE ×2 (09:46→13:57)
--- NOTE | 2024-04-02 11:15 | DVHPN2 ---
Reviewed: Care Plan, H&P, Labs, Medications, Previous Orders, Radiology Changes from previous H/P or p: No Changes Eyes: No Pain, No Vision change, No Conjunctivae inflammation, No Eyelid inflammation, No Other, No Redness ENT: No Ear pain, No Ear discharge, No Nose pain, No Nose discharge, No Nose congestion, No Mouth pain, No Mouth swelling, No Throat pain, No Throat swelling, No Other Cardiovascular: No Chest Pain, No Palpitations, No Orthopnea, No Paroxysmal Noc. Dyspnea, No Edema, No Lt Headedness, No Other Respiratory: No Cough, No Dry, No Shortness of breath, No SOB with excertion, No Wheezing, No Hemoptysis, No Pleuritic Pain, No Sputum, No Other Gastrointestinal: No Nausea, No Vomiting; Abdominal Pain; No Diarrhea, No Constipation, No Melena, No Hematochezia, No Other Genitourinary: No Dysuria, No Frequency, No Incontinence, No Hematuria, No Retention, No Other Musculoskeletal: No other, No neck pain, No shoulder pain, No arm pain, No back pain, No hand pain, No leg pain, No foot pain Skin: No Rash, No Lesions, No Jaundice, No Bruising, No Other Objective Vitals Vital Signs Date Time Temp Pulse Resp B/P (MAP) Pulse Ox O2 Delivery O2 Flow Rate FiO2 04/02/24 09:00 98.8 75 17 121/84 (96) 95 98.8 04/02/24 08:10 Room Air* 0 21 Intake/Output Intake and Output 04/02/24 07:00 Intake Total 840 ml Balance 840 ml Intake Oral 840 ml # Voids 2 Medications Current Medications Medications Dose Ordered Sig/Juvenal Route Start Time Stop Time Status Last Admin Dose Admin Pantoprazole Sodium 40 mg DAILY IV 04/01/24 10:00 04/02/24 08:25 40 MG Sodium Chloride 1,000 ml @ 60 mls/hr [id number] IV 03/31/24 16:00 04/02/24 01:26 60 MLS/HR Acetaminophen/ Hydrocodone Bitart 1 tab Q4HP PRN PO 03/31/24 16:00 Ondansetron HCl 4 mg Q4HP PRN IV 03/31/24 16:00 Docusate Sodium 100 mg BIDPRN PRN PO 03/31/24 16:00 Acetaminophen 650 mg Q6HP PRN PO 03/31/24 16:00 Morphine Sulfate 2 mg Q4HPRN PRN IV 03/31/24 16:00 Nitroglycerin 0.4 mg Q5MINP PRN SL 03/31/24 16:00 Morphine Sulfate 2 mg Q30M PRN IV 03/31/24 16:00 Sucralfate 1 gm QID@0600,1130,1700,2200 PO 04/01/24 17:00 04/01/24 22:20 1 GM Laboratory Results Laboratory Tests 04/01/24 03:34 Chemistry Test 04/02/24 05:46 Albumin 4.9 g/dL (3.2-4.8) H Total Protein 7.8 g/dL (5.7-8.2) Coagulation Test 04/02/24 05:46 Prothrombin Time 10.9 sec (9.3-11.8) Prothrombin Time INR 1.03 (0.9-1.15) Activated Partial Thromboplast Time 27.7 SEC (24.5-34.5) LFT Test 04/02/24 05:46 Alanine Aminotransferase (ALT) 43 U/L (7-40) H Alkaline Phosphatase 78 U/L (46-116) Aspartate Amino Transferase (AST) 10 U/L (13-40) L Direct Bilirubin 0.4 mg/dL (<0.3) H Total Bilirubin 1.4 mg/dL (0.2-1.0) H HgA1c, TSH Test 04/02/24 05:46 Thyroid Stimulating Hormone (TSH) 1.67 uIU/mL (0.55-4.78) Urinalysis Test 03/31/24 12:12 Urine Color Light-yellow (Yellow) Urine Clarity Clear (Clear) Urine pH 7.0 (5.0-9.0) Urine Specific [place] 1.025 (1.001-1.035) Urine Protein Negative (Negative) Urine Ketones Negative (Negative) Urine Blood Negative /uL (Negative) Urine Nitrite Negative (Negative) Urine Bilirubin Negative (Negative) Urine Urobilinogen Normal mg/dL (Negative) Urine Leukocyte Esterase Negative /uL (Negative) Urine RBC None seen /hpf (0 - 3) Urine Microscopic WBC 1 /HPF (0-3) Urine Squamous Epithelial Cells None seen /hpf (<5) Urine Bacteria None seen /hpf (None Seen) Urine Mucus Few (None Seen) Urine Glucose Normal mg/dL (Normal) Labs and/or images reviewed: Labs reviewed by me, Image(s) reviewed by me Assessment/Plan Assessment/Plan Intractable abdominal pain: CBC with normal limits, CMP with normal limits, lipase negative CT abdomen pelvis without contrast negative pantoprazole GI consult for Dr. Sung Oneill appreciated, scheduled for EGD today Acute dehydration Blood alcohol neg Urine drug screen Gallbladder ultrasound negative Severe Vitamin D3 deficiency vitamin D3 7.5, will prescribe D3 at the time of discharge Plan discussed with: Patient My Orders Orders - DONNA BUTTERFIELD MD Procedure Category Date Status Time Drug Screen LAB 04/01/24 Logged 12:59 * Gi Dvh Quarter Supervisor CONS 04/01/24 Transmitted 13:04 Gallbladder US 04/02/24 Resulted 06:12 Date of Service: Apr 02, 2024 Billing Provider: DONNA BUTTERFIELD MD Common Visit Codes: [id number] INP/OBS CARE(HIGH) DONNA BUTTERFIELD MD Apr 02, 2024 11:15
[2024-04-02 13:21] LABS: Amphetamine Screen, Urine Neg (NEGATIVE); Barbiturate Scree,Urine Neg (NEGATIVE); Benzodiazephine Screen, Urine Neg (NEGATIVE); Cannabinoid Screen, Urine Neg (NEGATIVE); Cocaine Screen, Urine Neg (NEGATIVE); Opiate Scree,Urine Neg (NEGATIVE); Phencyclidine Screen, Urine Neg (NEGATIVE)
[2024-04-02] MEDS ORDERED: PROPOFOL 10 MG/ML 20 ML IV ONE ×2 (13:55→14:26)
--- NOTE | 2024-04-02 14:22 | DVHOP2 ---
Operative Report DATE OF OPERATION: 04/02/24 PROCEDURE: Upper Endoscopy with biopsy. PREOPERATIVE INDICATION: The patient is a 33 -year-old male undergoing endoscopy for chronic GERD and dyspepsia POSTOPERATIVE DIAGNOSES: 1. 2 cm sliding-type hiatal hernia with irregular squamocolumnar junction and grade a erosive esophagitis 2. Mild to moderate gastroduodenitis with hyperemia erythema and superficial erosions PROCEDURE PERFORMED BY: Gifty Oneill GI NURSE: Maddi SCOPE: Olympus videoendoscope. ASA CLASS: 2. PREOPERATIVE MEDICATIONS: Dr. Danyell Marcano PROCEDURE IN DETAIL: After obtaining an informed consent, the patient was placed on left lateral decubitus position. The patient was then sedated with the above medications. A bite block was placed between his teeth. The endoscope was then passed through the oropharynx, into the esophagus, and through the stomach and pylorus up to the second and third part of the duodenum. The endoscope was then withdrawn. The 2nd and 3rd part of the duodenal were normal. Duodenal bulb and postbulbar area showed mild duodenitis with some hyperemia and superficial erosions The pre-pyloric area antrum body showed [id number] gastritis with some antral gastric erosions. On retroflexion there was some hypertrophic gastritis in the proximal stomach There were some flecks of old blood. Duodenal and gastric biopsies were obtained. The endoscope was then withdrawn into the distal esophagus Patient had a 2-3 cm sliding-type hiatal hernia with slightly irregular squamocolumnar junction grade a erosive esophagitis and GE junction biopsies were obtained The remaining distal and proximal esophagus and oropharynx were unremarkable The patient tolerated the procedure well without difficulty. COMPLICATIONS : None SPECIMENS: Duodenal biopsies Gastric biopsies GE junction biopsies DISPOSITION: Transfer back to the floor Stable PLAN: 1. Await for biopsy result 2. Will place pt on Protonix 40 mg bid 3. Carafate 1 g p.o. twice a day 4. Resume soft mechanical diet advance as tolerated 5. DC aspirin NSAIDs smoking alcohol 6. Outpatient follow up with me in 4-6 weeks after discharge for ongoing GIFTY Moura MD Apr 02, 2024 14:22
[2024-04-03 01:00] VITALS: BP 142/66; PULSE 60; RESP 18; TEMP 97.9; O2SAT 95
[2024-04-03 05:00] VITALS: BP 110/72; PULSE 57; RESP 18; TEMP 97.9; O2SAT 96
[2024-04-03 08:30] VITALS: BP 120/77; PULSE 76; RESP 17; TEMP 98.5; O2SAT 96
--- NOTE | 2024-04-03 10:09 | DVHPN2 ---
Reviewed: Care Plan, H&P, Labs, Medications, Previous Orders, Radiology Changes from previous H/P or p: No Changes Eyes: No Pain, No Vision change, No Conjunctivae inflammation, No Eyelid inflammation, No Other, No Redness ENT: No Ear pain, No Ear discharge, No Nose pain, No Nose discharge, No Nose congestion, No Mouth pain, No Mouth swelling, No Throat pain, No Throat swelling, No Other Cardiovascular: No Chest Pain, No Palpitations, No Orthopnea, No Paroxysmal Noc. Dyspnea, No Edema, No Lt Headedness, No Other Respiratory: No Cough, No Dry, No Shortness of breath, No SOB with excertion, No Wheezing, No Hemoptysis, No Pleuritic Pain, No Sputum, No Other Gastrointestinal: No Nausea, No Vomiting; Abdominal Pain; No Diarrhea, No Constipation, No Melena, No Hematochezia, No Other Genitourinary: No Dysuria, No Frequency, No Incontinence, No Hematuria, No Retention, No Other Musculoskeletal: No other, No neck pain, No shoulder pain, No arm pain, No back pain, No hand pain, No leg pain, No foot pain Skin: No Rash, No Lesions, No Jaundice, No Bruising, No Other Objective Vitals Vital Signs Date Time Temp Pulse Resp B/P (MAP) Pulse Ox O2 Delivery O2 Flow Rate FiO2 04/03/24 08:30 98.5 76 17 120/77 (91) 96 98.5 04/02/24 20:00 Room Air* 0 21 Intake/Output Intake and Output 04/03/24 07:00 Intake Total 2540 ml Balance 2540 ml Intake Oral 750 ml IV Total 1790 ml # Voids 1 Medications Current Medications Medications Dose Ordered Sig/Juvenal Route Start Time Stop Time Status Last Admin Dose Admin Pantoprazole Sodium 40 mg DAILY IV 04/01/24 10:00 04/02/24 08:25 40 MG Sodium Chloride 1,000 ml @ 60 mls/hr [id number] IV 03/31/24 16:00 04/03/24 03:48 60 MLS/HR Acetaminophen/ Hydrocodone Bitart 1 tab Q4HP PRN PO 03/31/24 16:00 Ondansetron HCl 4 mg Q4HP PRN IV 03/31/24 16:00 Docusate Sodium 100 mg BIDPRN PRN PO 03/31/24 16:00 Acetaminophen 650 mg Q6HP PRN PO 03/31/24 16:00 Morphine Sulfate 2 mg Q4HPRN PRN IV 03/31/24 16:00 Nitroglycerin 0.4 mg Q5MINP PRN SL 03/31/24 16:00 Morphine Sulfate 2 mg Q30M PRN IV 03/31/24 16:00 Sucralfate 1 gm QID@0600,1130,1700,2200 PO 04/01/24 17:00 04/03/24 06:56 1 GM Laboratory Results Laboratory Tests 04/01/24 03:34 Urinalysis Test 03/31/24 12:12 Urine Color Light-yellow (Yellow) Urine Clarity Clear (Clear) Urine pH 7.0 (5.0-9.0) Urine Specific [place] 1.025 (1.001-1.035) Urine Protein Negative (Negative) Urine Ketones Negative (Negative) Urine Blood Negative /uL (Negative) Urine Nitrite Negative (Negative) Urine Bilirubin Negative (Negative) Urine Urobilinogen Normal mg/dL (Negative) Urine Leukocyte Esterase Negative /uL (Negative) Urine RBC None seen /hpf (0 - 3) Urine Microscopic WBC 1 /HPF (0-3) Urine Squamous Epithelial Cells None seen /hpf (<5) Urine Bacteria None seen /hpf (None Seen) Urine Mucus Few (None Seen) Urine Glucose Normal mg/dL (Normal) Assessment/Plan Assessment/Plan Intractable abdominal pain: CBC with normal limits, CMP with normal limits, lipase negative CT abdomen pelvis without contrast negative pantoprazole GI consult for Dr. Sung Oneill appreciated, Grade 2 erosive esophagitis and gastroduodenitis by EGD by Dr. Sung Oneill on 04/02/2024 Acute dehydration Blood alcohol neg Urine drug screen Gallbladder ultrasound negative Severe Vitamin D3 deficiency vitamin D3 7.5, will prescribe D3 at the time of discharge Plan discussed with: Patient My Orders Orders - DONNA BUTTERFIELD MD Procedure Category Date Status Time Communication Order ORDERS 04/02/24 Transmitted 11:12 Date of Service: Apr 03, 2024 Billing Provider: DONNA BUTTERFIELD MD Common Visit Codes: [id number] INP/OBS CARE(HIGH) DONNA BUTTERFIELD MD Apr 03, 2024 10:09
[2024-04-03] MEDS ORDERED: PANT40T PO (10:10)
[2024-04-03] MEDS ORDERED: SUCR1TAB31 PO (10:10)
[2024-04-03] MEDS ORDERED: CHOL500046 PO (10:14)
--- NOTE | 2024-04-03 10:18 | DVHDS2 ---
Discharge Summary Date of Admission Mar 31, 2024 at 15:49 Date of Discharge: Apr 03, 2024 Admitting Diagnosis Abdominal pain Wounds: EGD Labs/Diagnostic Data: Laboratory Results Test 04/02/24 12:40 04/02/24 05:46 04/01/24 03:34 03/31/24 12:12 Urine Opiates Screen Neg (NEGATIVE) Urine Fentanyl Screen Neg (NEGATIVE) Urine Barbiturates Screen Neg (NEGATIVE) Urine Phencyclidine Screen Neg (NEGATIVE) Urine Amphetamines Screen Neg (NEGATIVE) Urine Benzodiazepines Screen Neg (NEGATIVE) Urine Cocaine Screen Neg (NEGATIVE) Urine Cannabinoids Screen Neg (NEGATIVE) Prothrombin Time 10.9 sec (9.3-11.8) Prothrombin Time INR 1.03 (0.9-1.15) Activated Partial Thromboplast Time 27.7 SEC (24.5-34.5) Total Bilirubin 1.4 mg/dL (0.2-1.0) Direct Bilirubin 0.4 mg/dL (<0.3) Aspartate Amino Transferase (AST) 10 U/L (13-40) Alanine Aminotransferase (ALT) 43 U/L (7-40) Alkaline Phosphatase 78 U/L (46-116) Total Protein 7.8 g/dL (5.7-8.2) Albumin 4.9 g/dL (3.2-4.8) Vitamin D 25-Hydroxy 7.6 ng/mL (30.0-100) Thyroid Stimulating Hormone (TSH) 1.67 uIU/mL (0.55-4.78) White Blood Count 9.8 10^3/uL (4.4-10.8) Red Blood Count 4.99 10^6/uL (4.5-5.90) Hemoglobin 14.8 g/dL (13.5-17.5) Hematocrit 42.3 % (41.0-53.0) Mean Corpuscular Volume 84.6 fL (80.0-100.0) Mean Corpuscular Hemoglobin 29.6 pg (28.0-32.0) Mean Corpuscular Hemoglobin Concent 35.0 g/dL (32.0-36.0) Red Cell Distribution Width 13.6 % (11.8-14.3) Platelet Count 266 10^3/uL (140-450) Mean Platelet Volume 7.7 fL (6.9-10.8) Neutrophils (%) (Auto) 64.5 % (37.0-80.0) Lymphocytes (%) (Auto) 26.4 % (10.0-50.0) Monocytes (%) (Auto) 8.6 % (0.0-12.0) Eosinophils (%) (Auto) 0.2 % (0.0-7.0) Basophils (%) (Auto) 0.3 % (0.0-2.0) Neutrophils # (Auto) 6.3 10 ^3/uL (1.6-8.6) Lymphocytes # (Auto) 2.6 10 ^3/uL (0.4-5.4) Monocytes # (Auto) 0.8 10 ^3/uL (0-1.3) Eosinophils # (Auto) 0 10 ^3/uL (0-0.8) Basophils # (Auto) 0 10 ^3/uL (0-0.2) Nucleated Red Blood Cells 0.0 % Sodium Level 138 mmol/L (136-145) Potassium Level 3.7 mmol/L (3.5-5.1) Chloride Level 104 mmol/L (98-107) Carbon Dioxide Level 26 mmol/L (20-31) Anion Gap 8 (5-15) Blood Urea Nitrogen 9 mg/dL (9-23) Creatinine 0.75 mg/dL (0.700-1.30) Glomerular Filtration Rate Calc 121 mL/min (>90) BUN/Creatinine Ratio 12.0 (10.0-20.0) Serum Glucose 93 mg/dL (74-106) Calcium Level 9.4 mg/dL (8.7-10.4) Plasma/Serum Blood Alcohol < 3.0 mg/dL (<10) Urine Color Light-yellow (Yellow) Urine Clarity Clear (Clear) Urine pH 7.0 (5.0-9.0) Urine Specific [place] 1.025 (1.001-1.035) Urine Protein Negative (Negative) Urine Ketones Negative (Negative) Urine Blood Negative /uL (Negative) Urine Nitrite Negative (Negative) Urine Bilirubin Negative (Negative) Urine Urobilinogen Normal mg/dL (Negative) Urine Leukocyte Esterase Negative /uL (Negative) Urine RBC None seen /hpf (0 - 3) Urine Microscopic WBC 1 /HPF (0-3) Urine Squamous Epithelial Cells None seen /hpf (<5) Urine Bacteria None seen /hpf (None Seen) Urine Mucus Few (None Seen) Urine Glucose Normal mg/dL (Normal) Test 03/31/24 10:36 Lipase 32 U/L (12-53) Other Laboratory Tests 04/01/24 03:34 Brief Hx & Hospital Course: 33-year-old male came in for abdominal pain. CBC with a normal limits CMP within normal limits lipase negative CT abdomen pelvis without contrast negative placed on pantoprazole and Carafate GI consult by Dr. Sung Oneill EGD showed grade 2 erosive esophagitis and mild gastroduodenitis. Blood alcohol negative urine drug screen is negative gallbladder ultrasound is negative Severe vitamin D3 deficiency with a level of 7.5. Patient is discharged home on pantoprazole and Carafate and vitamin D3. He will follow up with the primary Dr and with the GI Dr. Sung Oneill in 10 days for the biopsy result Consults/Reason for consult GI Dr. Sung Oneill Operations or Procedures EGD Condition at Discharge: Fair Final Diagnosis/Problems List Intractable abdominal pain: CBC with normal limits, CMP with normal limits, lipase negative CT abdomen pelvis without contrast negative pantoprazole GI consult for Dr. Sung Oneill appreciated, Grade 2 erosive esophagitis and gastroduodenitis by EGD by Dr. Sung Oneill on 04/02/2024 Acute dehydration Blood alcohol neg Urine drug screen Gallbladder ultrasound negative Severe Vitamin D3 deficiency vitamin D3 7.5 Discharge Disposition: Home Discharge Instruct/Medications Diet: Regular Activity: No Restrictions, As Tolerated Follow Up/Referral: Follow up with GI Dr. Sung Oneill in 10 days for the biopsy result Use medications as prescribed Medications: Pantoprazole Carafate Vitamin-D3 35 (Time Taken for discharge summary 35 minutes) Discharge Statement: "Patient was advised to return to the ER or call 911 if any headaches, dizziness, shortness of breath, chest pain, abdominal pain, bleeding, fevers, or worsening of medical condition. Patient was counseled about treatment plan, medications, possible side effects, patientverbalized understanding. All questions were answered to the best of my ability. This discharge took greater then 30 minutes in planning, reviewing documentation, counseling the patient, and discussing with other team members." ASSESSMENT ASSESSMENT Hospital Course Improved Assessment Intractable abdominal pain: CBC with normal limits, CMP with normal limits, lipase negative CT abdomen pelvis without contrast negative pantoprazole GI consult for Dr. Sung Oneill appreciated, Grade 2 erosive esophagitis and gastroduodenitis by EGD by Dr. Sung Oneill on 04/02/2024 Acute dehydration Blood alcohol neg Urine drug screen Gallbladder ultrasound negative Severe Vitamin D3 deficiency vitamin D3 7.5 Date of Service: Apr 03, 2024 Billing Provider: DONNA BUTTERFIELD MD Common Visit Codes: [id number] DISCH DAY >30min DONNA BUTTERFIELD MD Apr 03, 2024 10:18
[2024-04-03 12:00] VITALS: BP 130/87; PULSE 70; RESP 20; TEMP 98.9; O2SAT 97
--- NOTE | 2024-04-03 22:19 | DVHPN2 ---
Progress Note - Dictate Date Seen: Apr 03, 2024 (Late entry Patient seen at 10:00 a.m.) Medical Necessity Reason Pt with a Central, PICC or Fol: No Subjective No new complaints Patient denies any nausea vomiting or abdominal pain He is tolerating diet EGD findings of the small hiatal hernia with GERD and gastroduodenitis discussed with the patient Await biopsy results vital signs Vital Sign Date Time Temp Pulse Resp B/P (MAP) Pulse Ox O2 Delivery O2 Flow Rate FiO2 04/03/24 12:00 98.9 70 20 130/87 (101) 97 98.9 04/03/24 08:00 Room Air* 0 21 Total Intake and Output 04/02/24 04/02/24 04/03/24 15:00 23:00 07:00 Intake Total 10 ml 1350 ml 1180 ml Balance 10 ml 1350 ml 1180 ml objective General Appearance: Alert, Oriented X3, Cooperative, No acute distress HEENT: Atraumatic, PERRLA, EOMI, Mucous membr. moist/pink Respiratory: Clear to auscultation, Normal air movement Cardiovascular: Regular rate, Normal S1, Normal S2, No murmurs Abdominal: Normal bowel sounds, Soft, No hepatospenomegaly, No masses, Other (Reports tenderness) Extremities: No clubbing, No cyanosis, No edema, Normal pulses, No tenderness/swelling Skin: No rashes, No breakdown, No significant lesion Neuro: Normal gait, Normal speech, Strength at 5/5 X4 ext, Normal tone, Sensation intact, Cranial nerves 3-12 NL, Reflexes 2+ Psych/Mental Status: Mental status NL, Mood NL laboratory and microbiology Laboratory Tests 04/01/24 03:34 Test 04/01/24 03:34 Range/Units Serum Glucose 93 74-106 mg/dL Problems(with codes): (1) Gastroduodenitis (2) Hiatal hernia with gastroesophageal reflux disease and esophagitis (3) Acute gastritis (4) Acute abdominal pain Prognosis Plan Discharge planning is in progress Maintained on PPI Carafate 1 g p.o. twice a day DC aspirin NSAIDs smoking alcohol Outpatient follow up with me in 2-4 weeks to review results and discuss further management Plan discussed with: Patient, Other GIFTY MOSELEY MD Apr 03, 2024 22:19
== END 2024-04-03 13:36 | disposition home or self-care (01) | DRG 384 ==
LOC: ER 09:59 → OVERFLOW 15:49 → EAST 04-01 15:33
PROVIDERS: ADMIT Nurse Practitioner Family; ATTEND Family Medicine
PROC: 0DB68ZX Excision of Stomach, Via Natural or Artificial Opening Endoscopic, Diagnostic (ICD-10-PCS; 2024-04-02)
PROC: 0DB48ZX Excision of Esophagogastric Junction, Via Natural or Artificial Opening Endoscopic, Diagnostic (ICD-10-PCS; 2024-04-02)
PROC: 0DB98ZX Excision of Duodenum, Via Natural or Artificial Opening Endoscopic, Diagnostic (ICD-10-PCS; principal; 2024-04-02 13:55)
DX: K25.9 Gastric ulcer, unspecified as acute or chronic, without hemorrhage or perforation (principal); K22.10 Ulcer of esophagus without bleeding; K29.90 Gastroduodenitis, unspecified, without bleeding; K44.9 Diaphragmatic hernia without obstruction or gangrene; E86.0 Dehydration; E80.6 Other disorders of bilirubin metabolism; R74.01 Elevation of levels of liver transaminase levels; K76.0 Fatty (change of) liver, not elsewhere classified; K21.9 Gastro-esophageal reflux disease without esophagitis; E55.9 Vitamin D deficiency, unspecified; Z79.899 Other long term (current) drug therapy; Z87.19 Personal history of other diseases of the digestive system
CPT/HCPCS: 36415; 74176; 76705; 80053; 80076; 80307; 80320; 81001; 82306; 83690; 84443; 85025; 85610; 85730; 96374; 96375; G0378; J2250; J2405; J2470; J2704